=== PATIENT | female | born 1990 | race Two or more races ===

== ENCOUNTER 2023-12-22 14:45 | Inpatient (IN) | payer MEDICAID ==
[~2023-12-22] VITALS: Ht 165.1 cm; Wt 99.8 kg
[2023-12-22] MEDS: LACT. RINGERS/OXYTOCIN 20UNITS 500 ML IV ONE ×2 (14:45→17:20)
[2023-12-22] MEDS ORDERED: LACT. RINGERS/OXYTOCIN 20UNITS 1,000 ML IV ONE (15:15)
[2023-12-22] MEDS ORDERED: PHISODERM TOP SOLN 240ML BTL TOP ONE (15:49)
[2023-12-22] MEDS ORDERED: DERMOPLAST 60ML BOTTLE TOP ONE (15:49)
[2023-12-22] MEDS ORDERED: WITCH HAZEL-GLYCERIN PAD TOP ONE (15:49)
[2023-12-22] MEDS ORDERED: ONDANSETRON ODT 4 MG TAB PO PRN (16:00)
[2023-12-22] MEDS ORDERED: ceFAZolin 2 GM/D5W50ml 50 ML IV ONE (16:00)
[2023-12-22 16:29] LABS: Urine Bacteria None Seen /hpf (None Seen)
[2023-12-22 16:50] LABS: Urine Blood 3+ /uL (Negative); Urine Clarity Turbid (Clear); Urine Color Yellow (Yellow); Urine Hyaline Cast FEW /lpf (0 - 2); Urine Mucus FEW (None Seen); Urine Protein, UAD 1+ (Negative); Urine Specific Gravity 1.037 (1.001-1.035); Urine Urobilinogen 2 mg/dL (Negative); Urine WBC 1 /hpf (0 - 5); Urine pH 5.5 (5.0-9.0)
[2023-12-22 16:58] LABS: Amphetamine Screen, Urine Neg (NEGATIVE)
[2023-12-22 16:58] LABS: Basophils # (auto) 0 10 ^3/uL (0-0.2); Basophils % (auto) 0.1 % (0.0-2.0); Eosinophils # (auto) 0 10 ^3/uL (0-0.8); Hematocrit 33.9 % (36.0-46.0); Hemoglobin 11.5 g/dL (12.2-16.2); Lymphocytes # (auto) 1.2 10 ^3/uL (0.4-5.4); Lymphocytes % (auto) 8.2 % (10.0-50.0); Mean Corpuscular Hemoglobin 27.2 pg (28.0-32.0); Mean Corpuscular Hgb Conc. 33.9 g/dL (32.0-36.0); Mean Corpuscular Volume 80.3 fL (80.0-100.0); Monocytes % (auto) 6.7 % (0.0-12.0); Neutrophils # (auto) 12.9 10 ^3/uL (1.6-8.6); Nucleated Red Blood Cells % 0.2 %; Platelet Count (auto) 187 10^3/uL (140-450); Red Blood Cells 4.23 10^6/uL (4.0-5.20); Red Cell Distribution Width 13.6 % (11.8-14.3); White Blood Cell 15.1 10^3/uL (4.4-10.8)
[2023-12-22 16:59] LABS: Barbiturate Scree,Urine Neg (NEGATIVE); Benzodiazephine Screen, Urine Neg (NEGATIVE); Cannabinoid Screen, Urine Pos (NEGATIVE); Cocaine Screen, Urine Neg (NEGATIVE); Opiate Scree,Urine Neg (NEGATIVE); Phencyclidine Screen, Urine Neg (NEGATIVE)
[2023-12-22 17:14] LABS: Albumin 3.7 g/dL (3.2-4.8); Alkaline Phosphatase 194 U/L (46-116); Anion Gap 8 (5-15); Aspartate Aminotransferase 10 U/L (13-40); BUN/Creatinine Ratio 8.9 (10.0-20.0); Blood Urea Nitrogen 7 mg/dL (9-23); Calcium 9.2 mg/dL (8.7-10.4); Carbon Dioxide 19 mmol/L (20-31); Chloride 109 mmol/L (98-107); Glucose 96 mg/dL (74-106); Potassium 4.1 mmol/L (3.5-5.1); Sodium 136 mmol/L (136-145)
[2023-12-22] MEDS: WITCH HAZEL-GLYCERIN PAD TOP PRN (17:14)
[2023-12-22 17:15] LABS: Bilirubin, Total 0.9 mg/dL (0.2-1.0); Total Protein 6.3 g/dL (5.7-8.2)
[2023-12-22] MEDS: PHISODERM TOP SOLN 240ML BTL TOP PRN (17:15)
[2023-12-22] MEDS: DERMOPLAST 60ML BOTTLE TOP PRN (17:15)
[2023-12-22 17:16] LABS: Alanine Aminotransferase < 9 U/L (7-40)
[2023-12-22 17:23] LABS: INR 0.96 (0.9-1.15); Partial Thromboplastin Time 27.3 SEC (24.5-34.5); Prothrombin Time 10.2 sec (9.3-11.8)
[2023-12-22] MEDS: ceFAZolin 2 GM/D5W50ml 50 ML IV ONE (17:24)
[2023-12-22 18:00] VITALS: BP 141/81; PULSE 68; RESP 20; TEMP 98.3; O2SAT 98
[2023-12-22 19:02] VITALS: BP 133/74; PULSE 72; RESP 14; TEMP 98; O2SAT 97
[2023-12-22] MEDS ORDERED: ceFAZolin 1GM/50ML 50 ML IV SCH (22:00)
[2023-12-22] MEDS: DOCUSATE SOD 100 MG CAP PO SCH (22:09)
[2023-12-22] MEDS: IBUPROFEN 600 MG TAB PO PRN (22:09)
[2023-12-22 23:20] VITALS: BP 135/76; PULSE 64; RESP 16; TEMP 98.4; O2SAT 96
[2023-12-23] VITALS (8 sets, daily range): BP systolic 117–125; BP diastolic 66–75; PULSE 62–76; RESP 16–18; TEMP 98–98.7; O2SAT 98–99
[2023-12-23] MEDS: ceFAZolin 1GM/50ML 50 ML IV SCH (01:39)
[2023-12-23] MEDS: RHO (D) IMMUNE GLOBULIN 300 MCG INJ IM ONE (02:15)
[2023-12-23] MEDS ORDERED: OXYTOCIN 10UNIT/ML 1ML VIAL IV ONE (12:52)
[2023-12-23] MEDS ORDERED: ceFAZolin 1GM/50ML 50 ML IV ONE (18:04)
[2023-12-23] MEDS: ACETAMINOPHEN 325 MG TAB PO PRN (22:53)
[2023-12-24 03:16] VITALS: BP 129/68; PULSE 60; RESP 18; TEMP 98.2; O2SAT 99
[2023-12-24 07:00] VITALS: BP 126/81; PULSE 67; RESP 16; TEMP 99; O2SAT 99
[2023-12-24] MEDS ORDERED: IBU600T PO (07:26)
[2023-12-24 08:06] LABS: RPR Non Reactive (Non Reactive); Rubella Antibodies, IgG <0.90 index (Immune >0.99)
[2023-12-24 11:00] VITALS: BP 129/69; PULSE 77; RESP 16; TEMP 99; O2SAT 99
== END 2023-12-24 16:09 | disposition home or self-care (01) | DRG 561 ==
LOC: LDRP 14:45 → UNDOADMIN 14:49 → LDRP 14:49
PROVIDERS: ADMIT Obstetrics & Gynecology; ATTEND Obstetrics & Gynecology
PROC: 0HQ9XZZ Repair Perineum Skin, External Approach (ICD-10-PCS; principal; 2023-12-22)
PROC: 0UQMXZZ Repair Vulva, External Approach (ICD-10-PCS; 2023-12-22)
PROC: 3E0234Z Introduction of Serum, Toxoid and Vaccine into Muscle, Percutaneous Approach (ICD-10-PCS; 2023-12-23)
DX: O71.82 Other specified trauma to perineum and vulva (principal); O70.0 First degree perineal laceration during delivery; Z39.0 Encounter for care and examination of mother immediately after delivery; Z23 Encounter for immunization
CPT/HCPCS: 36415; 80053; 80307; 81001; 85025; 85384; 85610; 85730; 86592; 86703; 86762; 86803; 86850; 86900; 86901; 87340; 90384; 94760; 96360; 96361; 96365; 96366; 96372; G0378; J2590